=== PATIENT | male | born 1940 | race African-American/Black ===

== ENCOUNTER 2018-11-16 17:23 | Emergency (ER) | payer OTHER ==
[~2018-11-16] VITALS: Ht 185.4 cm; Wt 100.0 kg
[~2018-11-16 17:23] MED LIST: ASPI-1158 MT; ATOR20TA MT; BISO5TAB13 MT; FINA5TAB3 MT; FLEC100T2 MT; GLYB5TAB7 MT; HYDR-4134 MT; HYDR12.529 MT; LISI-604 MT; OMEP1CAP MT; SERT25TA74 MT
[2018-11-16 18:24] LABS: BASOPHILS % 0.6 % (0.0-2.0); EOSINOPHILS % 5.3 % (0.0-5.0); HEMATOCRIT. 31.5 % (42.0-52.0); HEMOGLOBIN. 10.9 g/dL (14.0-18.0); LYMPHOCYTES % 34.3 % (20.0-50.0); MEAN CORPUSCULAR HEMOGLOBIN 33.2 pg (28.0-32.0); MEAN CORPUSCULAR VOLUME 96.1 fL (80.0-94.0); MEAN PLATELET VOLUME 6.8 fl (7.4-10.4); NEUTROPHILS % 51.8 % (40.0-76.0); PLATELET 273 x1000/uL (130-400); RED BLOOD CELL COUNT 3.28 mill/uL (4.7-6.1); RED CELL DISTRIBUTION WIDTH 13.4 % (11.6-14.6)
[2018-11-16 18:27] LABS: CHLORIDE 102 mEq/L (98-107)
[2018-11-16 18:31] LABS: PROTHROMBIN TIME 10.6 sec (9.6-11.0)
[2018-11-16 20:09] LABS: CLARITY URINE CLEAR (CLEAR); COLOR URINE YELLOW (YELLOW); KETONES URINE NEGATIVE (NEGATIVE); LEUKOCYTE ESTERASE URINE NEGATIVE (NEGATIVE); NITRITE URINE NEGATIVE (NEGATIVE); OCCULT BLOOD URINE NEGATIVE (NEGATIVE); PH URINE 5.5 (4.5-8.0); PROTEIN URINE NEGATIVE (NEGATIVE); SPECIFIC GRAVITY URINE 1.006 (1.005-1.030); UROBILINOGEN URINE 0.2 E.U./dL (0.2-1.0)
[2018-11-16] MEDS ORDERED: ASPIRIN 325MG EC TABLET PO ONE (22:00)
[2018-11-16] MEDS ORDERED: MORPHINE SULFATE 4 MG/ML CPJ (NOT FOR IM USE) IV ONE (22:15)
[2018-11-16] MEDS ORDERED: HYDRALAZINE HCL 50MG TABLET PO ONE (23:15)
[2018-11-16] MEDS ORDERED: HYDROCHLOROTHIAZIDE 12.5MG CAPSULE PO ONE (23:15)
[2018-11-16] MEDS ORDERED: LISINOPRIL 20MG TABLET PO ONE (23:15)
[2018-11-17 00:15] VITALS: BP 189/79
== END 2018-11-17 00:25 | disposition short-term general hospital (02) ==
LOC: ER 17:23 → CANBEDREQ 11-17 01:58
DX: R55 Syncope and collapse (principal); R07.9 Chest pain, unspecified; I10 Essential (primary) hypertension; E11.9 Type 2 diabetes mellitus without complications; Z86.73 Personal history of transient ischemic attack (TIA), and cerebral infarction without residual deficits; Z88.1 Allergy status to other antibiotic agents; Z88.2 Allergy status to sulfonamides; Z88.8 Allergy status to other drugs, medicaments and biological substances; Z79.82 Long term (current) use of aspirin; Z79.899 Other long term (current) drug therapy
CPT/HCPCS: 36415; 70450; 71045; 80053; 81003; 83690; 83880; 84484; 85025; 85610; 96374; 99285; J2270

== ENCOUNTER 2020-10-03 20:18 | Emergency (ER) | payer OTHER ==
[~2020-10-03] VITALS: Ht 167.6 cm; Wt 71.0 kg
[~2020-10-03 20:18] MED LIST changes: -ASPI-1158 MT; +ASPI-1406 MT; -LISI-604 MT; +LISI20TA31 MT; -OMEP1CAP MT; +OMEP1CAP32 MT
[2020-10-03 21:43] VITALS: BP 187/81
== END 2020-10-03 21:49 | disposition left against medical advice (07) ==
LOC: ER 20:18
DX: R07.9 Chest pain, unspecified (principal); I16.0 Hypertensive urgency; E11.9 Type 2 diabetes mellitus without complications; I10 Essential (primary) hypertension; Z88.2 Allergy status to sulfonamides; Z88.8 Allergy status to other drugs, medicaments and biological substances; Z79.82 Long term (current) use of aspirin; Z86.73 Personal history of transient ischemic attack (TIA), and cerebral infarction without residual deficits
CPT/HCPCS: 93005; 99283

== ENCOUNTER 2021-11-26 18:55 | Emergency (ER) | payer OTHER, MEDICARE, MEDICAID ==
[~2021-11-26] VITALS: Ht 177.8 cm; Wt 68.0 kg
[2021-11-26] MEDS ORDERED: ASPIRIN 325MG EC TABLET PO ONE (19:30)
[2021-11-26 20:26] LABS: CLARITY URINE CLEAR (CLEAR); COLOR URINE YELLOW (YELLOW); KETONES URINE NEGATIVE (NEGATIVE); LEUKOCYTE ESTERASE URINE NEGATIVE (NEGATIVE); NITRITE URINE NEGATIVE (NEGATIVE); OCCULT BLOOD URINE NEGATIVE (NEGATIVE); PROTEIN URINE NEGATIVE (NEGATIVE); SPECIFIC GRAVITY URINE 1.011 (1.005-1.030); UROBILINOGEN URINE 0.2 E.U./dL (0.2-1.0)
[2021-11-26 20:38] LABS: BASOPHILS % 0.5 % (0.0-2.0); HEMATOCRIT. 31.6 % (42.0-52.0); HEMOGLOBIN. 10.7 g/dL (14.0-18.0); LYMPHOCYTES % 29.6 % (20.0-50.0); MEAN CORPUSCULAR HEMOGLOBIN 32.2 pg (28.0-32.0); MEAN CORPUSCULAR VOLUME 95.2 fL (80.0-94.0); MEAN PLATELET VOLUME 6.7 fl (7.4-10.4); NEUTROPHILS % 57.9 % (40.0-76.0); PLATELET 219 x1000/uL (130-400); RED BLOOD CELL COUNT 3.32 mill/uL (4.7-6.1); RED CELL DISTRIBUTION WIDTH 12.5 % (11.6-14.6)
[2021-11-26 20:46] LABS: CHLORIDE 106 mEq/L (98-107)
[2021-11-26] MEDS ORDERED: ASPIRIN 325MG EC TABLET PO NR (23:45)
[2021-11-27] MEDS ORDERED: MORPHINE SULFATE 4 MG/ML CPJ (NOT FOR IM USE) IV ONE
[2021-11-27] MEDS ORDERED: MORPHINE SULFATE 4 MG/ML CPJ (NOT FOR IM USE) IV NR ×2 (02:00→05:45)
[2021-11-27 04:30] VITALS: BP 166/80
== END 2021-11-27 06:54 | disposition left against medical advice (07) ==
LOC: ER 18:55
DX: R07.89 Other chest pain (principal); I11.9 Hypertensive heart disease without heart failure; F41.9 Anxiety disorder, unspecified; E11.9 Type 2 diabetes mellitus without complications; E78.00 Pure hypercholesterolemia, unspecified; I25.2 Old myocardial infarction; F03.90 Unspecified dementia, unspecified severity, without behavioral disturbance, psychotic disturbance, mood disturbance, and anxiety; Z86.73 Personal history of transient ischemic attack (TIA), and cerebral infarction without residual deficits; Z90.79 Acquired absence of other genital organ(s); Z88.2 Allergy status to sulfonamides; Z88.1 Allergy status to other antibiotic agents
CPT/HCPCS: 36415; 70450; 71045; 80053; 81003; 82962; 83880; 84484; 85025; 93005; 99285; J2270

== ENCOUNTER 2022-07-27 20:43 | Emergency (ER) | payer OTHER, MEDICAID ==
[~2022-07-27] VITALS: Ht 188 cm; Wt 73.0 kg
[2022-07-27 21:13] VITALS: BP 193/94
== END 2022-07-27 21:00 | disposition left against medical advice (07) ==
LOC: ER 20:43
DX: Z53.21 Procedure and treatment not carried out due to patient leaving prior to being seen by health care provider (principal)

== ENCOUNTER 2025-05-20 03:44 | Inpatient (IN) | payer OTHER, MEDICAID ==
[~2025-05-20] VITALS: Ht 182.9 cm; Wt 64.9 kg
[~2025-05-20 03:44] MED LIST changes: -BISO5TAB13 MT; +CARV25TA47 MT; +FINA-37 MT; -FINA5TAB3 MT; -FLEC100T2 MT; -HYDR-4134 MT; -HYDR12.529 MT; +HYDR25TA78 MT; +LORA-250 MT
[2025-05-20 03:48] VITALS: O2SAT 99
[2025-05-20 04:33] LABS: BASOPHILS % 0.4 % (0.0-2.0); EOSINOPHILS % 4.0 % (0.0-5.0); HEMATOCRIT. 30.1 % (42.0-52.0); HEMOGLOBIN. 10.0 g/dL (14.0-18.0); LYMPHOCYTES % 34.9 % (20.0-50.0); MEAN PLATELET VOLUME 7.1 fl (7.4-10.4); MONOCYTES % 8.1 % (2.0-8.0); NEUTROPHILS % 52.6 % (40.0-76.0); PLATELET 257 x1000/uL (130-400); RED BLOOD CELL COUNT 3.18 mill/uL (4.7-6.1); RED CELL DISTRIBUTION WIDTH 13.8 % (11.6-14.6)
[2025-05-20] MEDS: ASPIRIN 325MG TABLET PO ONE (04:39)
[2025-05-20 04:48] LABS: CREATININE 1.0 mg/dL (0.6-1.3)
[2025-05-20 04:49] LABS: UREA NITROGEN BLOOD 14 mg/dL (9-23)
[2025-05-20 04:50] LABS: TROPONIN I HIGH SENSITIVITY 22 ng/L (3.0-53)
[2025-05-20 06:05] LABS: TROPONIN I HIGH SENSITIVITY 22 ng/L (3.0-53)
[2025-05-20 07:02] LABS: INR 1.0
[2025-05-20] MEDS ORDERED: ACETAMINOPHEN 650MG/20.3ML UDC GT PRN (07:45)
[2025-05-20] MEDS ORDERED: LORAZEPAM 1MG TABLET PO SCH (07:45)
[2025-05-20] MEDS ORDERED: IPRATROPIUM/ALBUTEROL 0.5-3(2.5)MG/3ML NEB HHN PRN (07:45)
[2025-05-20] MEDS: LABETALOL 5MG/ML 4ML INJ IV NR (07:51)
[2025-05-20 08:00] VITALS: BP 141/75; PULSE 56; RESP 16; TEMP 36.6; O2SAT 99
[2025-05-20] MEDS ORDERED: DEXTROSE 50% WATER 50ML SYRINGE IV PRN (08:15)
[2025-05-20] MEDS ORDERED: ASPIRIN 81MG EC TABLET PO SCH (09:00)
[2025-05-20] MEDS: FERROUS SULFATE 325MG TABLET PO SCH (09:00)
[2025-05-20] MEDS ORDERED: DOCUSATE SODIUM 100MG CAPSULE PO PRN (09:00)
[2025-05-20 09:40] LABS: CLARITY URINE CLEAR (CLEAR); COLOR URINE YELLOW (YELLOW); GLUCOSE URINE NEGATIVE (NEGATIVE); KETONES URINE NEGATIVE (NEGATIVE); LEUKOCYTE ESTERASE URINE NEGATIVE (NEGATIVE); NITRITE URINE NEGATIVE (NEGATIVE); OCCULT BLOOD URINE TRACE (NEGATIVE); PH URINE 8.0 (4.5-8.0); PROTEIN URINE 1+ (NEGATIVE); SPECIFIC GRAVITY URINE 1.006 (1.005-1.030); UROBILINOGEN URINE 0.2 E.U./dL (0.2-1.0)
[2025-05-20 09:54] LABS: *AMPHETAMINES SCREEN URINE NEGATIVE (NEGATIVE); *BARBITURATES SCREEN URINE NEGATIVE (NEGATIVE); *BENZODIAZEPINES SCREEN URINE NEGATIVE (NEGATIVE); *COCAINE SCREEN URINE NEGATIVE (NEGATIVE); METHADONE URINE SCREEN NEGATIVE (NEGATIVE); OPIATES URINE SCREEN NEGATIVE (NEGATIVE); PHENCYCLIDINE URINE SCREEN NEGATIVE (NEGATIVE)
[2025-05-20 09:55] LABS: CANNABINOID URINE SCREEN NEGATIVE (NEGATIVE); ECSTASY MDMA SCREEN URINE NEGATIVE (NEGATIVE)
[2025-05-20] MEDS: PANTOPRAZOLE SODIUM 40 MG/VIAL IV SCH (10:23)
[2025-05-20] MEDS: HYDRALAZINE HCL 25MG TABLET PO SCH (10:23)
[2025-05-20] MEDS: MAGNESIUM 2 G PREMIX 50 ML IV ONE (10:23)
[2025-05-20] MEDS: FINASTERIDE 5MG TABLET PO SCH (10:24)
[2025-05-20] MEDS: SERTRALINE HCL 25MG TABLET PO SCH (10:24)
[2025-05-20] MEDS: LISINOPRIL 20MG TABLET PO SCH (10:24)
[2025-05-20 10:44] LABS: SQUAMOUS EPITHELIAL CELL URINE FEW /lpf (RARE/1+)
[2025-05-20 10:45] LABS: BACTERIA URINE NONE SEEN; RBC URINE 0-2 /hpf (0-2); WBC URINE 0-2 /hpf (0-2)
[2025-05-20 11:32] LABS: TROPONIN I HIGH SENSITIVITY 38 ng/L (3.0-53)
[2025-05-20] MEDS: BLOOD SUGAR DIAGNOSTIC STRIP TEST SCH (11:45)
[2025-05-20 12:00] VITALS: BP 197/91; PULSE 71; RESP 16; TEMP 36.7; O2SAT 99
[2025-05-20] MEDS: ENOXAPARIN 40MG/0.4ML SYR SUBCUT SCH (13:24)
[2025-05-20] MEDS: INSULIN LISPRO 100 UNITS/ML SUBCUT SCH (13:26)
[2025-05-20 14:46] VITALS: BP 141/75; PULSE 81; RESP 16; TEMP 36.7516
[2025-05-20 16:00] VITALS: BP 165/92; PULSE 65; RESP 17; TEMP 36.6; O2SAT 98
[2025-05-20] MEDS: CLONIDINE 0.1MG TABLET PO PRN (16:16)
[2025-05-20] MEDS: ACETAMINOPHEN 325MG TABLET PO PRN (16:16)
[2025-05-20] MEDS: ONDANSETRON HCL 4MG/2ML INJ IV PRN (16:52)
[2025-05-20] MEDS: ONDANSETRON HCL 4MG TABLET PO PRN (17:02)
[2025-05-20] MEDS: HYDRALAZINE 20MG/ML VIAL IV NR ×2 (18:15→21:27)
[2025-05-20 20:00] VITALS: BP 213/97; PULSE 60; RESP 16; TEMP 35.9; O2SAT 99
[2025-05-20] MEDS: NITROGLYCERIN 0.4MG TABLET SL SL PRN (21:27)
[2025-05-20] MEDS: ATORVASTATIN CALCIUM 20MG TABLET PO SCH (21:28)
[2025-05-20] MEDS: LIDOCAINE 5% PATCH TOP SCH (21:35)
[2025-05-21] VITALS (87 sets, daily range): BP systolic 108–221; BP diastolic 65–140; PULSE 61–141; RESP 7–23; TEMP 36.4–37.1; O2SAT 97–100
[2025-05-21 00:14] LABS: TROPONIN I HIGH SENSITIVITY 80 ng/L (3.0-53)
[2025-05-21] MEDS: NITROGLYCERIN 50MG PREMIX 250 ML IV PRN (02:01)
[2025-05-21 06:09] LABS: BASOPHILS % 0.3 % (0.0-2.0); EOSINOPHILS % 2.9 % (0.0-5.0); HEMATOCRIT. 32.4 % (42.0-52.0); HEMOGLOBIN. 10.9 g/dL (14.0-18.0); LYMPHOCYTES % 25.5 % (20.0-50.0); MEAN PLATELET VOLUME 7.1 fl (7.4-10.4); MONOCYTES % 6.7 % (2.0-8.0); NEUTROPHILS % 64.6 % (40.0-76.0); PLATELET 275 x1000/uL (130-400); RED BLOOD CELL COUNT 3.43 mill/uL (4.7-6.1); RED CELL DISTRIBUTION WIDTH 13.4 % (11.6-14.6)
[2025-05-21 06:25] LABS: CREATININE 0.9 mg/dL (0.6-1.3); UREA NITROGEN BLOOD 11 mg/dL (9-23)
[2025-05-21] MEDS: LISINOPRIL 40MG TABLET PO SCH (08:07)
[2025-05-21 08:08] LABS: LDL CHOLESTEROL 52.0 mg/dL (5-100); TRIGLYCERIDE 53.0 mg/dL (0-150)
[2025-05-21 08:26] LABS: TROPONIN I HIGH SENSITIVITY 60 ng/L (3.0-53)
[2025-05-21] MEDS ORDERED: ENALAPRIL 0.625 MG in DEXTROSE 5% WATER 49.5 ML IV PRN (12:15)
[2025-05-21 12:31] LABS: TROPONIN I HIGH SENSITIVITY 42 ng/L (3.0-53)
[2025-05-21] MEDS ORDERED: VERAPAMIL HCL 2.5 MG/1 ML 2ML VIAL IV ONE ×2 (13:14→13:57)
[2025-05-21] MEDS ORDERED: LIDOCAINE HCL 1% 20ML VIAL ONE (13:14)
[2025-05-21] MEDS ORDERED: IODIXANOL 320MG/ML 100 ML BOTTLE IV ONE (13:14)
[2025-05-21] MEDS ORDERED: HEPARIN 1000 UNITS/ML 10ML ONE (13:14)
[2025-05-21] MEDS: HYDRALAZINE 20MG/ML VIAL IV PRN (13:19)
[2025-05-21] MEDS ORDERED: FENTANYL CITRATE/PF 50MCG/ML 2ML VIAL ONE (13:49)
[2025-05-21] MEDS ORDERED: MIDAZOLAM HCL 2 MG/2 ML VIAL ONE (13:50)
[2025-05-21] MEDS: HYDRALAZINE HCL 50MG TABLET PO SCH (16:07)
[2025-05-21] MEDS: IBUPROFEN 400MG TABLET PO NR (17:43)
[2025-05-21] MEDS: LIDOCAINE 5% PATCH TOP NR (17:44)
[2025-05-21] MEDS: LORAZEPAM 2MG/ML UD SYRINGE IV NR (20:48)
[2025-05-21] MEDS: ATORVASTATIN CALCIUM 20MG TABLET PO SCH (21:21)
[2025-05-21] MEDS: CARVEDILOL 6.25 MG TABLET PO SCH (21:21)
[2025-05-21] MEDS: ENALAPRIL 1.25MG/ML VIAL 1ML IV PRN (23:00)
[2025-05-22] VITALS (70 sets, daily range): BP systolic 80–213; BP diastolic 50–109; PULSE 52–94; RESP 5–20; TEMP 36.6–37.1; O2SAT 97–99
[2025-05-22 06:26] LABS: BASOPHILS % 0.2 % (0.0-2.0); EOSINOPHILS % 3.3 % (0.0-5.0); HEMATOCRIT. 33.2 % (42.0-52.0); HEMOGLOBIN. 11.1 g/dL (14.0-18.0); LYMPHOCYTES % 21.8 % (20.0-50.0); MEAN PLATELET VOLUME 7.2 fl (7.4-10.4); MONOCYTES % 9.1 % (2.0-8.0); NEUTROPHILS % 65.6 % (40.0-76.0); PLATELET 266 x1000/uL (130-400); RED BLOOD CELL COUNT 3.48 mill/uL (4.7-6.1); RED CELL DISTRIBUTION WIDTH 13.6 % (11.6-14.6)
[2025-05-22 06:41] LABS: CREATININE 0.8 mg/dL (0.6-1.3)
[2025-05-22 06:42] LABS: UREA NITROGEN BLOOD 12 mg/dL (9-23)
[2025-05-22 06:44] LABS: PHOSPHORUS 2.8 mg/dL (2.5-4.9)
[2025-05-22 06:54] LABS: TROPONIN I HIGH SENSITIVITY 86 ng/L (3.0-53)
[2025-05-22] MEDS: SERTRALINE HCL 25MG TABLET PO SCH (08:14)
[2025-05-22] MEDS: ASPIRIN 81MG TABLET PO SCH (08:14)
[2025-05-22] MEDS: HYDRALAZINE HCL 100MG TABLET PO SCH (13:02)
[2025-05-22] MEDS: MAGNESIUM 4 G PREMIX 100 ML IV ONE (13:18)
[2025-05-22] MEDS ORDERED: CLONIDINE 0.2MG TABLET PO PRN (13:45)
[2025-05-22] MEDS: SODIUM CHLORIDE 0.9% 250 ML IV ONE (15:00)
[2025-05-22] MEDS: HYDRALAZINE HCL 25MG TABLET PO SCH (16:31)
[2025-05-22] MEDS ORDERED: CARVEDILOL 12.5MG TABLET PO SCH (21:00)
[2025-05-22] MEDS: LISINOPRIL 20MG TABLET PO SCH (21:44)
[2025-05-22] MEDS: CARVEDILOL 6.25 MG TABLET PO SCH (21:44)
== END 2025-05-22 22:15 | disposition short-term general hospital (02) | DRG 287 ==
LOC: ER 03:44 → 5WST 05:41 → EDBEDREQTM 05:53 → EDBEDREQ 05:53 → ENRESERV 05:58 → CVICU 05-21 02:28 → 5WST 05-22 15:25
PROVIDERS: ADMIT Hospitalist; ATTEND Hospitalist
PROC: 4A023N7 Measurement of Cardiac Sampling and Pressure, Left Heart, Percutaneous Approach (ICD-10-PCS; principal; 2025-05-21)
PROC: B211YZZ Fluoroscopy of Multiple Coronary Arteries using Other Contrast (ICD-10-PCS; 2025-05-21)
DX: I16.0 Hypertensive urgency (principal); I20.0 Unstable angina; E11.9 Type 2 diabetes mellitus without complications; D64.9 Anemia, unspecified; E78.5 Hyperlipidemia, unspecified; F03.94 Unspecified dementia, unspecified severity, with anxiety; F32.9 Major depressive disorder, single episode, unspecified; I10 Essential (primary) hypertension; F03.93 Unspecified dementia, unspecified severity, with mood disturbance; R07.89 Other chest pain; E83.42 Hypomagnesemia; N40.0 Benign prostatic hyperplasia without lower urinary tract symptoms; F41.1 Generalized anxiety disorder; Z79.82 Long term (current) use of aspirin; Z88.2 Allergy status to sulfonamides; Z88.3 Allergy status to other anti-infective agents
CPT/HCPCS: 36415; 71045; 80048; 80061; 80305; 81003; 82550; 82962; 83036; 83735; 83880; 84100; 84443; 84484; 85025; 85379; 93005; 93458; 93970; 99285; A4606; A4615; C1769; C1887; C1893; J0360; J1644; J1650; J1815; J2003; J2060; J2250; J2405; J2470; J3010; J3475; J3490; Q0162; Q9967